=== PATIENT | female | born 1990 | race Two or more races ===

== ENCOUNTER 2023-12-28 10:29 | Emergency (ER) | payer OTHER ==
[2023-12-28 10:37] VITALS: BP 129/76; PULSE 86; RESP 20; TEMP 98.6; BMI 21.9
[2023-12-28 11:40] LABS: EPI CELLS >36 /uL (0-25.1); HYALINE CASTS 0 /uL (0-3.1); URINE APPEARANCE CLEAR; URINE BACTERIA 959 /uL (0-1359); URINE BILIRUBIN NEGATIVE (NEGATIVE); URINE COLOR YELLOW; URINE GLUCOSE (UA) NEGATIVE (NEGATIVE); URINE KETONE TRACE (NEGATIVE); URINE LEUK ESTERASE 2+ (NEGATIVE); URINE NITRITE NEGATIVE (NEGATIVE); URINE PROTEIN TRACE (NEGATIVE); URINE RBC 17 /uL (0-23.9); URINE WBC 81 /uL (0-25.8)
== END 2023-12-28 13:31 | disposition left against medical advice (07) ==
LOC: JER 10:29
DX: O20.9 Hemorrhage in early pregnancy, unspecified (principal); O23.591 Infection of other part of genital tract in pregnancy, first trimester; B37.31 Acute candidiasis of vulva and vagina; Z3A.01 Less than 8 weeks gestation of pregnancy
CPT/HCPCS: 36415; 81003; 84702; 86850; 86900; 86901; 87070; 87077; 87086; 87205; 87491; 87591; 87661; 99283-25

== ENCOUNTER 2024-01-22 07:56 | Emergency (ER) | payer OTHER ==
[2024-01-22 08:03] VITALS: BMI 22.1
[2024-01-22] MEDS ORDERED: FAMOTIDINE 20 MG/50 ML IVPB 20 MG/50 ML MG IVPB ONE (09:17)
[2024-01-22] MEDS ORDERED: ACETAMINOPHEN INJECTION 100 ML IVPB ONE (09:17)
[2024-01-22] MEDS: FAMOTIDINE 20 MG/50 ML IVPB 20 MG/50 ML MG IVPB ONE (09:32)
[2024-01-22] MEDS: SODIUM CHLORIDE 1,000 ML IV STA (09:32)
[2024-01-22] MEDS: ACETAMINOPHEN 1000 MG/100 ML BAG IVPB ONE (09:32)
[2024-01-22 09:40] LABS: BASO % 0.6 % (0-2.0); EOS % 1.8 % (0-4.5); HEMATOCRIT 35.7 % (32.4-45.2); HEMOGLOBIN 12.1 GM/dL (10.7-15.3); LYMPH % 25.3 % (8-40); MCH 29.9 pg (25.7-33.7); MCHC 33.8 g/dl (32.0-36.0); MEAN CELL VOLUME 88.4 fl (80-96); MEAN PLT VOLUME 8.1 fl (7.5-11.1); MONO % 12.8 % (3.8-10.2); NEUT % 59.5 % (42.8-82.8); PLATELET COUNT 228 10^3/uL (134-434); RBC 4.03 M/mm3 (3.60-5.2); RDW 13.5 % (11.6-15.6); WHITE BLOOD COUNT 4.8 K/mm3 (4.0-10.0)
[2024-01-22 09:55] LABS: POTASSIUM 3.9 mmol/L (3.5-5.1)
[2024-01-22 09:58] LABS: ALBUMIN 3.7 g/dl (3.4-5.0); BLOOD UREA NITROGEN 8.8 mg/dL (7-18); CALCIUM 8.7 mg/dL (8.5-10.1)
[2024-01-22 10:01] LABS: CREATININE 0.6 mg/dL (0.55-1.3)
[2024-01-22 10:02] LABS: BILIRUBIN,TOTAL 0.3 mg/dL (0.2-1)
[2024-01-22 11:02] LABS: EPI CELLS 15 /uL (0-25.1); HYALINE CASTS 0 /uL (0-3.1); URINE APPEARANCE CLEAR; URINE BACTERIA 266 /uL (0-1359); URINE BILIRUBIN NEGATIVE (NEGATIVE); URINE COLOR YELLOW; URINE GLUCOSE (UA) NEGATIVE (NEGATIVE); URINE KETONE NEGATIVE (NEGATIVE); URINE LEUK ESTERASE 2+ (NEGATIVE); URINE NITRITE NEGATIVE (NEGATIVE); URINE PROTEIN NEGATIVE (NEGATIVE); URINE RBC 3 /uL (0-23.9); URINE UROBILINOGEN 0.2 mg/dL (0.2-1.0); URINE WBC 70 /uL (0-25.8)
[2024-01-22 12:13] VITALS: BP 104/60; PULSE 67; RESP 20; TEMP 97.6
== END 2024-01-22 13:41 | disposition home or self-care (01) ==
LOC: JERFT 07:56 → JER 07:56 → JERFT 13:41
PROC: 3E033GC Introduction of Other Therapeutic Substance into Peripheral Vein, Percutaneous Approach (ICD-10-PCS; principal; 2024-01-22)
PROC: 3E033NZ Introduction of Analgesics, Hypnotics, Sedatives into Peripheral Vein, Percutaneous Approach (ICD-10-PCS; 2024-01-22)
DX: O26.891 Other specified pregnancy related conditions, first trimester (principal); R10.13 Epigastric pain; O98.511 Other viral diseases complicating pregnancy, first trimester; U07.1 COVID-19; O99.891 Other specified diseases and conditions complicating pregnancy; R09.81 Nasal congestion; R68.83 Chills (without fever); M79.10 Myalgia, unspecified site; Z3A.09 9 weeks gestation of pregnancy
CPT/HCPCS: 0241U-QW; 36415; 76705-TC; 80053; 81003; 83690; 85025; 87086; 99284-25; J0131

== ENCOUNTER 2024-04-27 20:13 | Emergency (ER) | payer OTHER ==
[2024-04-27 20:24] VITALS: BP 115/81; PULSE 99; RESP 20; TEMP 98.2; BMI 23.8
[2024-04-27] MEDS ORDERED: ONDANSETRON *ODT* 4 MG TABLET ONE (22:56)
[2024-04-27 23:14] LABS: HEMATOCRIT 31.9 % (32.4-45.2); HEMOGLOBIN 10.9 GM/dL (10.7-15.3); MCH 30.3 pg (25.7-33.7); MCHC 34.3 g/dl (32.0-36.0); MEAN CELL VOLUME 88.5 fl (80-96); MEAN PLT VOLUME 7.4 fl (7.5-11.1); PLATELET COUNT 240 10^3/uL (134-434); RDW 13.6 % (11.6-15.6); WHITE BLOOD COUNT 6.8 K/mm3 (4.0-10.0)
[2024-04-27] MEDS: ONDANSETRON *ODT* 4 MG TABLET SL ONE (23:17)
[2024-04-28] LABS: POTASSIUM 3.8 mmol/L (3.5-5.1)
[2024-04-28 00:01] LABS: CALCIUM 8.5 mg/dL (8.5-10.1)
[2024-04-28 00:02] LABS: ALBUMIN 2.9 g/dl (3.4-5.0); BLOOD UREA NITROGEN 9.1 mg/dL (7-18)
[2024-04-28 00:05] LABS: CREATININE 0.6 mg/dL (0.55-1.3)
[2024-04-28 00:07] LABS: BILIRUBIN,TOTAL 0.2 mg/dL (0.2-1); TOT PROT 6.4 g/dl (6.4-8.2)
== END 2024-04-28 01:06 | disposition home or self-care (01) ==
LOC: JER 20:13
DX: O09.522 Supervision of elderly multigravida, second trimester (principal); O98.512 Other viral diseases complicating pregnancy, second trimester; J10.1 Influenza due to other identified influenza virus with other respiratory manifestations; O99.891 Other specified diseases and conditions complicating pregnancy; R42 Dizziness and giddiness; R07.89 Other chest pain; R06.02 Shortness of breath; O21.2 Late vomiting of pregnancy; Z3A.24 24 weeks gestation of pregnancy; Z20.822 Contact with and (suspected) exposure to COVID-19
CPT/HCPCS: 0241U-QW; 36415; 80053; 82962; 83880; 84484; 85027; 93005; 93010; 99284-25